=== PATIENT | female | born 1960 | race Caucasian/White ===

== ENCOUNTER 2022-07-15 03:04 | Outpatient (CLI) | payer OTHER, SELFPAY ==
--- NOTE | 2022-07-16 13:24 | W.PFT ---
Date of service: 07/15/22 Time of Service: 14:59 Pulmonary Function Test Result Requesting Provider Anette Gonzales Indications: Chronic cough Interpretation Spirometry: No airflow limitation. Methacholine challenge not performed as patient took Trelegy prior to testing. This has been rescheduled. Lung Volumes: Normal lung volumes Diffusion Capacity: Normal diffusion Airway Pressure: Normal airways pressure Impression Normal pulmonary function testing. Clinical Correlation therefore is recommended.
== END 2022-07-15 03:05 | disposition home or self-care (01) ==
LOC: RT 03:04
PROVIDERS: PCP Family Medicine; Visit Provider Physician Assistant Surgical
DX: R05.3 Chronic cough (principal)
CPT/HCPCS: 94726; 94729; 94010

== ENCOUNTER 2022-07-22 03:03 | Outpatient (CLI) | payer OTHER, SELFPAY ==
[2022-07-22] MEDS: Albuterol HFA 18 GM 200 PUFF INH IH (14:16)
[2022-07-22] MEDS: Methacholine 100 MG VIAL IH (14:16)
[2022-07-22] MEDS: Inhaler, Assist Device 1 EACH MC (14:16)
--- NOTE | 2022-07-25 13:40 | PFT_ITS ---
Date of service: 07/22/22 Time of Service: 13:00 Pulmonary Function Test Result Indications: Chronic cough Interpretation Spirometry: No airflow limitation at baseline. There was a 27% decrease in FEV1% with admin istration of 1.0mg/mL methacholine. Impression Strongly positive methacholine challenge. Clinical Correlation therefore is recommended.
== END 2022-07-22 03:04 | disposition home or self-care (01) ==
LOC: RT 03:03
PROVIDERS: PCP Family Medicine; Visit Provider Physician Assistant Surgical
DX: R05.3 Chronic cough (principal)
CPT/HCPCS: 94060; 94070; J7674

== ENCOUNTER 2024-10-17 14:44 | Outpatient (CLI) | payer OTHER, SELFPAY ==
--- NOTE | 2024-10-17 13:30 | DI.RAD_ITS ---
Exam(s) XR HIP RT COMPLETE AP PELVIS EXAM: XR HIP RT COMPLETE AP PELVIS CLINICAL HISTORY: eval R hip OA, preTHA planning. TECHNIQUE: 2D digital imaging was performed. Two views COMPARISON: No exams were available for comparison FINDINGS: BONES: No acute fracture is present. No bony destructive lesion is seen. The sacrum is partially obscured by overlying bowel gas. JOINTS: No dislocation present. There is severe narrowing of the right hip joint space, with a [id number] appearance. There is subchondral cysts on both sides of the joint as well as acetabular spurring. The left hip joint space is maintained. There is mild acetabular spurring. There are mild degenerative changes of the SI joints. SOFT TISSUE: Surgical clips in the bilateral lower pelvis. IMPRESSION: Severe degenerative changes of the right hip. DATA REPOSITORY: RADIATION DOSE DELIVERED:
== END 2024-10-17 14:45 | disposition home or self-care (01) ==
LOC: DIORS 14:44
PROVIDERS: PCP Family Medicine; Referring Provider Family Medicine; Visit Provider Student in an Organized Health Care Education/Training Program
DX: M16.11 Unilateral primary osteoarthritis, right hip (principal)
CPT/HCPCS: 73502

== ENCOUNTER 2024-12-29 18:29 | Outpatient (REF) | payer BC, SELFPAY ==
[2024-12-29 18:00] LABS: HCT 35.1 % (36.0-46.0); HGB 11.6 g/dL (11.2-15.7); MCH 31.5 pg (27.0-33.0); MCHC 33.0 % (32.0-36.0); MCV 95 fL (80-95); MPV 9.7 fL (8.0-11.0); Platelet Count 339 10^3/uL (130-400); RBC 3.68 10^6/uL (3.93-5.22); RDW 14.0 % (11.7-14.6); RDW-SD 48.8 fL; WBC 5.61 10^3/uL (4.4-10.8)
[2024-12-29 18:05] LABS: Anion Gap 10.2 mmol/L (3-11); BUN 14 mg/dL (7-18); CO2 22.8 mmol/L (21.0-32.0); Calcium 9.1 mg/dL (8.5-10.1); Chloride 95 mmol/L (98-107); Estimated GFR 105.32 (mL/min/1.73m2); Glucose 91 mg/dL (74-106); Potassium 4.5 mmol/L (3.5-5.1); Sodium 128 mmol/L (136-145)
== END 2024-12-29 18:30 | disposition home or self-care (01) ==
LOC: LBN 18:29
PROVIDERS: PCP Family Medicine; Visit Provider Student in an Organized Health Care Education/Training Program
DX: M16.11 Unilateral primary osteoarthritis, right hip (principal); Z01.818 Encounter for other preprocedural examination
CPT/HCPCS: 80048; 85027

== ENCOUNTER 2025-01-04 08:16 | Day surgery (SDC) | payer BC, SELFPAY ==
[2025-01-04] VITALS (24 sets, daily range): BP systolic 89–123; BP diastolic 46–77; PULSE 63–70; RESP 14–22; TEMP 36.1–36.6; O2SAT 94–100; BMI 32.7
--- NOTE | 2025-01-04 07:23 | PDOC.DSDIS_ITS ---
Date of service: 01/04/25 Discharge Plan Disposition Patient Disposition: Home Condition: Good Discharge Details Reason For Visit: R THR Attending Provider: Lj Tapia Primary Care Provider: Jj Sifuentes Home Meds and New Rx's Prescriptions: New celecoxib 200 mg capsule 200 mg PO BID Qty: 60 0RF aspirin 81 mg tablet,delayed release (DR/EC) 81 mg PO BID Qty: 60 0RF acetaminophen 500 mg tablet 1,000 mg PO TID Qty: 90 3RF pantoprazole 40 mg tablet,delayed release (DR/EC) 40 mg PO DAILY Qty: 14 0RF dexamethasone 4 mg tablet 4 mg PO DAILY Qty: 2 0RF docusate sodium 100 mg capsule 100 mg PO BID PRNQty: 28 0RF oxycodone 5 mg tablet 5 mg PO Q4H MDD 6 tabs PRN (Reason: pain) Qty: 12 0RF Continued fluoxetine 40 mg capsule 40 mg PO QPM fluticasone propionate 50 mcg/actuation spray,suspension 2 spray intranasal DAILY Rx Instructions: administer into each nostril hydroxychloroquine 200 mg tablet 200 mg PO BID multivitamin Tablet 1 tab PO DAILY naloxone [Narcan] 4 mg/actuation spray,non-aerosol 1 spray intranasal DIRECTED PRN Rx Instructions: spray 1 dose into ONE nostril; alternate nostrils w each dose until help arrives acetaminophen [Tylenol Extra Strength] 500 mg tablet 1,000 mg PO Q3H PRN vitamin T03-ibtfw acid 500-400 mcg tablet 1 tab PO DAILY Rx Instructions: administer with a meal zolpidem 5 mg tablet 5 mg PO QHS PRN Breztri Aerosphere 160-9-4.8 mcg/actuation HFA aerosol inhaler 2 inh inhalation BID Qty: 10.7 12RF Airsupra 90-80 mcg/actuation HFA aerosol inhaler 2 inh inhalation ONCE Qty: 10.7 12RF Rx Instructions: as a single dose; may repeat up to 6 doses per day (12 inhalations) albuterol sulfate 2.5 mg /3 mL (0.083 %) solution for nebulization 2.5 mg inhalation QID PRN (Reason: shortness of breath or wheezing) Qty: 180 6RF Calcium 600 with Vitamin D3 600 mg-10 mcg (400 unit) tablet,chewable 1 tab PO DAILY cyclobenzaprine 10 mg tablet 10 mg PO HS PRN Discontinued tramadol 50 mg tablet 50 mg PO BID PRN Discharge Instructions Additional Instructions: Total Hip Discharge Instructions Activity: The most important activity is to walk. You should try to take short walks a few times a day. You have no restrictions on movement or positioning, but do not try to force what you do. You will find some stiffness and weakness with hip flexion (lifting your knee). Do not try to strengthen this too early, continue to practice walking and stairs and this will come. - Outpatient physical therapy can be helpful to help return you to a normal gait and improve your flexibility and strength. This can start around 2 weeks. For some patients, it?s not necessary. Usually this is determined at the time of discharge or at the first post-operative visit. - You should wear the AIDEN hose on both legs for 2 weeks. Dressing: Keep the surgical dressing in place for at least one week. After the first week it may be removed and replace with light gauze and tape or nothing. It may get wet after 3 days but avoid soaking the dressing. If it gets wet, just lightly pat dry. It is important to always keep some gauze between skin folds, especially when you are sitting. Spend some time with the wound exposed when you are lying flat as the incision does wrinkle onto itself. Medications: - You should take Tylenol and an anti-inflammatory Celebrex as your primary pain control medications. If the Celebrex is too expensive or not covered, please call the office for another alternative (Advil/Ibuprofen or Naproxen/Aleve). - You have been prescribed a stronger pain medication Oxycodone for breakthrough pain to take instead of your usual tramadol. Take as needed as prescribed. - You have also been prescribed a stomach acid reduction agent Pantoprozole to help reduce stomach acid and reflux. - You have also been prescribed Decadron to help with post-operative nausea and pain. You will take this for two days starting tomorrow. - You will be taking Aspirin 81mg twice a day for DVT prevention unless instructed otherwise. - If you have constipation you should take Colace or Miralax (both xfpr-bwe-naigomo). It takes most people 3-4 days to have a bowel movement. Follow-up: 2 weeks If you have any acute concerns or questions, please do not hesitate to contact the office at [phone]. You may contact Dr. Tapia with any questions after hours through the hospital at [phone] or on his cell phone at [phone]. Referrals: Lj Tapia MD [ [facility] STAFF PHYSICIAN, Orthopaedic Surgical] Equipment/Supplies: Walker Activity:: Activity as Tolerated Shower/Bathe:: 72 hours Diet:: As Tolerated Discharge Orders Discharge Orders: Discharge Order (Routine); Ordered 01/04/25 Ordered By: Miguel Gaston DS: Diagnosis Discharge Diagnosis (1) Arthritis of right hip: Status: Acute
--- NOTE | 2025-01-04 08:15 | DI.RAD_ITS ---
Exam(s) XR HIP RT IN OR EXAM: XR HIP RT IN OR CLINICAL HISTORY: RIGHT HIP OA. TECHNIQUE: 2D and realtime digital imaging was performed. COMPARISON: CR XR HIP RT COMPLETE AP PELVIS from 10/17/2024 FINDINGS: Hard copy images show placement of a right hip prosthesis. The alignment appears satisfactory. Please see procedure note for details. Fluoro time: 35.1 seconds RADIATION DOSE DELIVERED: Ka,r=3.95 mGy
[2025-01-04] MEDS: Acetaminophen 500 MG TAB 1000 MG PO (08:56)
[2025-01-04] MEDS: Celecoxib 200 MG CAP 400 MG PO (08:56)
--- NOTE | 2025-01-04 08:58 | W.ANESPRE ---
General Info Date of Service Date Performed: 01/04/25 Height: 5 ft 1.5 in Weight: 79.8 kg Body Mass Index (BMI): 32.7 Surgical Procedure: Operation Date: 01/04/25 11:35 Proposed Procedure Side Surgeon p Hip Total Hip Anterior Right Lj Tapia MD Meds Allergies and Home Medications Allergies Allergy/AdvReac Type Severity Reaction Status Date / Time codeine AdvReac Intermediate Other (See Verified 01/04/25 08:47 Comment) Home Medication ?Medication ?Instructions ?Recorded acetaminophen 500 mg tablet 1,000 mg PO Q3H PRN 06/26/22 (Tylenol Extra Strength) fluoxetine 40 mg capsule 40 mg PO QPM 06/26/22 fluticasone propionate 50 2 spray intranasal DAILY 06/26/22 mcg/actuation nasal spray,suspension hydroxychloroquine 200 mg tablet 200 mg PO BID 06/26/22 multivitamin 1 tab PO DAILY 06/26/22 naloxone 4 mg/actuation nasal 1 spray intranasal DIRECTED PRN 06/26/22 spray (Narcan) vitamin B12 500 mcg-folic acid 400 1 tab PO DAILY 06/26/22 mcg tablet zolpidem 5 mg tablet 5 mg PO QHS PRN 06/26/22 calcium 600 mg (as carbonate)-vit 1 tab PO DAILY 07/28/24 D3 10 mcg (400 unit) chewable tablet (Calcium 600 with Vitamin D3) cyclobenzaprine 10 mg tablet 10 mg PO HS PRN 07/28/24 albuterol 90 mcg-budesonide 80 2 inh inhalation ONCE #10.7 grams 09/14/24 mcg/actuation HFA aerosol inhaler (Airsupra) albuterol sulfate 2.5 mg/3 mL 2.5 mg (3 mL) inhalation QID PRN 09/14/24 (0.083 %) solution for nebulization shortness of breath or wheezing #180 mL budesonide 160 mcg-glycopyr 9 2 inh inhalation BID #10.7 grams 09/14/24 mcg-formot 4.8 mcg/actuation HFA inhaler (Breztri Aerosphere) acetaminophen 500 mg tablet 1,000 mg (2 x 500 mg) PO TID #90 01/04/25 tabs aspirin 81 mg tablet,delayed 81 mg PO BID #60 tabs 01/04/25 release celecoxib 200 mg capsule 200 mg PO BID #60 caps 01/04/25 dexamethasone 4 mg tablet 4 mg PO DAILY #2 tabs 01/04/25 docusate sodium 100 mg capsule 100 mg PO BID PRN #28 caps 01/04/25 oxycodone 5 mg tablet 5 mg PO Q4H PRN pain #12 tabs 01/04/25 pantoprazole 40 mg tablet,delayed 40 mg PO DAILY #14 tabs 01/04/25 release Current Visit Medications: Current Medications Generic Name Dose Route Start Last Admin Trade Name Marleen PRN Reason Stop Dose Admin Acetaminophen 1,000 mg 01/04/25 06:00 01/04/25 08:56 Acetaminophen 500 Mg Tab PO 01/04/25 23:59 1,000 mg PREOP AMIE Administration Acetaminophen 1,000 mg 01/04/25 07:21 Acetaminophen 500 Mg Tab PO 02/03/25 08:29 TID PRN Analgesia Celecoxib 400 mg 01/04/25 06:00 01/04/25 08:56 Celecoxib 200 Mg Cap PO 01/04/25 23:59 400 mg PREOP AMIE Administration Docusate Sodium 100 mg 01/04/25 07:21 Docusate Sodium 100 Mg Cap PO 02/03/25 07:20 BID PRN PRN Constipation Ringer's Solution 1,000 mls @ 80 mls/hr 01/04/25 06:00 IV 01/04/25 23:59 INFUSION AMIE Cefazolin Sodium/Dextrose 2 gm in 50 mls @ 100 mls/hr 01/04/25 06:00 Ancef Duplex IVPB 01/04/25 23:59 PREOP AMIE Tranexamic Acid/Sodium Chloride 1,000 mg in 100 mls @ 600 mls/hr 01/04/25 06:00 IVPB 01/04/25 23:59 PREOP AMIE IV Miscellaneous Supplies 1 each 01/04/25 06:00 Iv Access IV 01/04/25 23:59 DIRECTED AMIE Ondansetron HCl 4 mg 01/04/25 07:21 Ondansetron 4 Mg/2 Ml Vial IVP 02/03/25 07:20 Q6H PRN PRN Nausea Oxycodone HCl 0 mg 01/04/25 07:21 Oxycodone 5 Mg Tab PO 02/03/25 07:20 Q3H PRN PRN Pain Polyethylene Glycol 17 gm 01/04/25 07:21 Polyethylene Glycol 3350 17 Gm Packet PO 02/03/25 07:20 BID PRN PRN Constipation Sodium Chloride 0 ml 01/04/25 06:00 Normal Saline Flush 10 Ml Syr IV 01/04/25 23:59 PRN PRN Sodium Chloride 0 ml 01/04/25 06:00 Normal Saline 10 Ml Vial IJ 01/04/25 23:59 DIRECTED PRN Sterile Water 0 ml 01/04/25 06:00 Water,Injection,Sterile 10 Ml Vial IJ 01/04/25 23:59 DIRECTED PRN PFSH Active Problems Active Problems: Problem Status Onset Code History of total right hip replacement Acute 01/04/25 Z96.641 Personal history of nicotine dependence Acute Z87.891 Asthma Chronic J45.909 Chronic cough Acute R05.3 Vitamin deficiency Acute E56.9 Vitamin D deficiency Acute E55.9 Varicose veins of both lower extremities Acute I83.93 Sleep disorder Acute G47.9 Polycystic disease, ovaries Acute E28.2 Sleep apnea, obstructive Chronic G47.33 Lower back pain Acute M54.50 Knee pain Acute M25.569 Presence of total knee joint prosthesis Acute Z96.659 Iron deficiency Acute E61.1 Intestinal malabsorption Acute K90.9 Insomnia Acute G47.00 Idiopathic osteoarthritis Acute M19.90 GERD (gastroesophageal reflux disease) Chronic K21.9 Episodic tension type headache Acute G44.219 Duodenitis Acute K29.80 Disorder of iron metabolism Acute E83.10 Depressive disorder Chronic F32.A Degeneration of lumbar intervertebral disc Acute M51.36 Cough Acute R05.9 Constipation Acute K59.00 Chronic rhinitis Acute J31.0 Chronic back pain Acute M54.9, G89.29 Cellulitis Acute L03.90 Abnormal blood chemistry Acute R79.9 Backache Acute M54.9 Arthropathy Acute M12.9 Adjustment disorder with depressed mood Acute F43.21 Adjustment disorder with anxious mood Acute F43.22 Acute sinusitis Acute J01.90 Acute bronchitis Acute J20.9 Medical History Medical History Hyperlipidemia History of psychiatric disorder depression and anxiety History of elective section Surgical History Surgical History History of bilateral knee replacement Hx of tubal ligation 04/27/88 History of colonoscopy 12/30/12 Hx of bariatric surgery 11/30/14 Tobacco Smoking/Tobacco Use Status: Former Tobacco Use Passive smoking exposure: No Alcohol Alcohol Intake: current Alcohol intake frequency: holidays/special occasions only Substance Use Substance use: Never Substance use type: does not use Vital Signs and Lab Results Vital Signs Most Recent Vital Signs in EMR: Most Recent Vital Signs Temp Pulse Resp BP Pulse Ox 36.4 C L 70 16 118/74 100 01/04/25 08:36 01/04/25 08:36 01/04/25 08:36 01/04/25 08:36 01/04/25 08:36 Lab Results Complete Blood Count: WBC, (4.4-10.8) 5.61 10^3/uL 12/29/24, 14:15 RBC, (3.93-5.22) 3.68 10^6/uL L 12/29/24, 14:15 Hgb, (11.2-15.7) 11.6 g/dL 12/29/24, 14:15 Hct, (36.0-46.0) 35.1 % L 12/29/24, 14:15 Plt Count, (130-400) 339 10^3/uL 12/29/24, 14:15 Complete Metabolic Panel: Sodium, (136-145) 134 mmol/L L Today, 09:40 Potassium, (3.5-5.1) 4.3 mmol/L Today, 09:40 Chloride, (98-107) 101 mmol/L Today, 09:40 Carbon Dioxide, (21.0-32.0) 25.9 mmol/L Today, 09:40 BUN, (7-18) 11 mg/dL Today, 09:40 Creatinine, (0.55-1.02) 0.5 mg/dL L Today, 09:40 Est GFR (CKD-EPI 2020), (mL/min/1.73m2) 105.32 Today, 09:40 Calcium, (8.5-10.1) 8.8 mg/dL Today, 09:40 Albumin, (3.4-5.0) 3.4 g/dL Today, 09:40 Glucose, (74-106) 85 mg/dL Today, 09:40 Liver Function Panel: ALT, (14-59) 22 U/L Today, 09:40 AST, (15-37) 23 U/L Today, 09:40 Imaging and Studies Imaging and Studies Study information below may be from another EMR and interpreted by another provider. Please see original notes in EMR for more complete details. Pulmonary Function Summary: Pulmonary Function Test PATIENT NAME: Bessie Dent UNIT #: [id number] ADMITTING PROVIDER: Natalia Sam M.D. PRIMARY CARE PROVIDER: SANDI RUTLEDGE DATE OF ADMIT: 07/22/22 : 1960 Date of service: 07/22/22 Time of Service: 13:00 Pulmonary Function Test Result Indications: Chronic cough Interpretation Spirometry: No airflow limitation at baseline. There was a 27% decrease in FEV1% with administration of 1.0mg/mL methacholine. Impression Strongly positive methacholine challenge. Clinical Correlation therefore is recommended. cc: Dictated by: NATALIA SAM MD Dictated: 07/25/22 Time: 1340 <Electronically signed by Natalia Sam M.D.> Date: 07/25/221341 Date: Date: Transcribed Date: 07/25/22 Transcribed Time: 1340 By: NAILA This is privileged, confidential information, intended only for the provider named. Any use or distribution by any person other than this provider is strictly prohibited. If you receive this report in error, please notify us immediately at [phone] and return the original report to us at the address above. Thank you. Anesthesia Assessment and Plan Anesthesia History Personal History: No History of Anesthesia Complications Family History: No Family History of Anesthesia Complications Exercise Tolerance Exercise Tolerance: Metabolic Equivalents>4 Pertinent Negatives Pertinent Negatives: No Major Cardiovascular Symptoms or Complaints and No History of CVA/TIA Cardiac & Pulmonary Exam Cardiac Exam: Normal S1/S2 Heart Sounds Pulmonary Exam: Clear Bilateral Breath Sounds Implantable Cardiac Device Does patient have a Pacemaker or an ICD?: No Airway Exam Known Difficult Airway: No Mallampati Class: 3 Mouth Opening: Normal (> 3cm) Thyromental Distance: Greater than 3 cm Neck Range of Motion: Full ROM Neck Circumference: Normal Teeth Condition: Removable Dentures/Plates Upper and Edentulous ASA Classification ASA Score: ASA 3 Emergency Case?: No NPO Status NPO Status: NPO Clears >2 hours, Solids >8 hours Anesthesia Plan Resuscitation Status: Full Code Anesthesia Technique: General Anesthesia Airway Planned: Endotracheal Tube Monitors Used: Standard Monitors
[2025-01-04] MEDS: Lactated Ringers 1,000 ML 80 ML IV (09:09)
[2025-01-04 10:05] LABS: ALT 22 U/L (14-59); AST 23 U/L (15-37); Albumin 3.4 g/dL (3.4-5.0); Alkaline Phosphatase 80 U/L (46-116); Anion Gap 7.1 mmol/L (3-11); BUN 11 mg/dL (7-18); Bilirubin, Total 0.2 mg/dL (0.2-1.0); CO2 25.9 mmol/L (21.0-32.0); Calcium 8.8 mg/dL (8.5-10.1); Chloride 101 mmol/L (98-107); Estimated GFR 105.32 (mL/min/1.73m2); Glucose 85 mg/dL (74-106); Potassium 4.3 mmol/L (3.5-5.1); Sodium 134 mmol/L (136-145); Total Protein 7.1 g/dL (6.4-8.2)
--- NOTE | 2025-01-04 11:04 | W.PM.OP ---
Operative Note Operative Note PRE-OP DIAGNOSIS: Right Hip Osteoarthritis POST-OP DIAGNOSIS: same PROCEDURE: Right Anterior Total Hip Arthroplasty with Intraoperative Navigation SURGEON: Lj Tapia SHOWROOM EXECUTIVE DIRECTOR: Miguel Gaston ANESTHESIA TYPE: General LMA/ETT Refer to Anesthesia Record ESTIMATED BLOOD LOSS: 200 PATHOLOGY: none sent TOURNIQUET TIME: 0 COMPLICATIONS: None Patient was transported to: PACU Patient's condition: stable Implants: 1. Depuy Mason Acetabular Component, 52mm 2. Depuy Acetabular Liner, [id number] 3. Depuy Corail Short Neck 135 Degree Collared Femoral Stem, Size 13 4. Depuy Altrx Ceramic Femoral Head, Size 36+1.5mm Indications: I have seen Bessie in clinic for symptoms of hip arthritis, confirmed with radiographic findings. She has exhausted nonoperative methods and was having significant limitations in daily function and desired better function and less pain. I discussed the technical details of a hip replacement. I explained the risks of the procedure to include, but not limited to, bleeding, infection, pain, stiffness, fracture, damage to nerves and vessels, damage to muscles and tendons, loosening, instability, leg length inequality, need for repeat procedure, blood clot and cardiopulmonary demise. Despite these risks, Bessie elected to proceed. Findings: There was significant signs of arthritis throughout the hip with a large effusion and abundant synovitis. Procedure Description: Bessie was greeted in the preoperative holding area where the correct side was identified and marked. The consent was reviewed with the patient and signed. The history and physical was updated. All questions were answered. She was taken back to the operating room. A general anesthestic was then administered. The feet were wrapped with cast padding and Coban and then placed into the boot liners and then into the boots. Care was taken to protect the skin and make sure the heels were fully down and the boots were stable. The patient was then positioned onto the HANA table. Both legs were held in a neutral position. SCDs were applied. The patient was then slid down onto a peroneal post. Prophylactic antibiotics in the form of Cefazolin were administered. 1g of Tranxemic Acid was given intravenously within 30 minutes of incision. The right leg was then prepped with Chloraprep and draped in a standard fashion. A second prep with Chloraprep was performed prior to placement of a shower-curtain type drape with Iodine impregnated skin protection. A timeout to confirm correct identity, side and site, procedure, allergies, anesthesia, and medical concerns was performed. An obliquely oriented incision was made starting lateral to the ASIS and running distal over the Tensor Fascia Zora (TFL) muscle belly toward the fibular head, approximately 10cm. The skin and soft tissue was dissected sharply, through Nargis?s fascia, and to the fascia of the TFL. With the fascia and superior border of the IT band identified, the fascia was incised with a new knife just above any perforators from the IT band. The TFL muscle belly was bluntly dissected away from the fascia and moved laterally. The fat between TFL and rectus was identified to ensure the dissection was not within the TFL. Blunt dissection created space between abductors and the capsule and retractor was placed over the lateral femoral neck. The fibers of the rectus femoris tendon were identified and these were freed from the anterior capsule. A second cobra retractor was placed around the medial femoral neck. The TFL was further retracted laterally to show the deep fascia. Careful dissection through this layer identified three main crossing vessels of the lateral femoral circumflex. These were cauterized in multiple locations and then cut without any noticeable bleeding. The TFL was further released bluntly from the deep fascia to expose anterior hip capsule and fat The soft tissue orthopaedic retractor was then placed beneath the TFL and against sartorius and medial soft tissues to protect and retract the soft tissues. A T-capsulotomy was then performed starting at the superior lateral acetabulum and moving distally to the intertrochanteric ridge. These capsular flaps were tagged with a No. 1 Vicryl and elevated from within. The capsular flaps were released to the shoulder of the lateral neck and to the lesser trochanter to give excellent visualization of the proximal femur. A neck osteotomy was performed using an oscillating saw based on preoperative templates. This cut started in the shoulder and of the lateral neck and exited medially. The saw was at all times directed medially to avoid injury to the greater trochanter. Gross traction was applied to the leg and the osteotomy opened. The femoral head was removed with a corkscrew, making sure to protect the TFL on its exit. Traction was released after head removal. This was measured on the back table to determine the starting reamer size. Portions of the rectus obscuring visualization were minimally elevated off the superior acetabulum. An anterior retractor was placed over the anterior wall between capsule and labrum and attached to the Gripper retraction system. The femur was rotated to 90 degrees and medial capsule was fully released until the lesser trochanter was palpable and visible; the femur was returned to 30 degrees. A posterior retractor was placed similarly between capsule and labrum. This provided excellent visualization. The contents of the cotyloid fossa were removed with electrocautery and the labrum was removed with a knife. There was a notable floor osteophyte. There was significant chondromalacia of the superior acetabulum. Acetabular reaming began with a 46mm reamer. This first reaming was directed anterior to posterior and medial to get down to the true floor. This was inspected and reamed until the true floor was reached. The anterior retractor was then released and entry and exit was provided by traction on the capsular flaps. I then reamed sequentially up to a 52mm reamer where good fit was obtained. The larger reamers were oriented based on anatomical reference of the anterior and lateral gutierrez to ensure proper abduction and anteversion. Positioning and size was confirmed with the fluoroscopy. A 52mm Depuy Mason acetabular component was selected. The acetabulum was reamed around the periphery with the selected acetabular size to prevent a rim fit. The deep tissues were irrigated. The acetabular component was then impacted in a position of about 40-45 degrees of abduction and 15-20 degrees of anteversion, using the patient?s anatomy as the ultimate landmark. Fluoroscopy was used to confirm this. There was excellent auto inspector of the acetabular component and the inserting handle was removed. The acetabular liner, Depuy [id number] polyethylene liner, was inserted and lined up with the tines of the acetabular component. There was no soft tissue interposition. The liner was then impacted into position and confirmed to be well-seated. A portion of the romario-articular cocktail was then injected around the acetabulum into the capsule and periosteum. This cocktail consisted of 123mg of Ropivacaine, 0.25mg of Epinephrine, 0.04mg of Clonidine, and 15mg of Ketorolac, diluted to 50cc. The leg was rotated to 120 degrees. Any remaining medial capsule was released until the lesser trochanter was easily palpable. A retractor was placed medially. The lateral capsule was further released into the shoulder to allow access to the greater trochanter. A Winter retractor was placed over the greater trochanter which allowed the trochanter to flip in front of the capsule for excellent exposure. The leg was brought down into maximal extension and 20 degrees of adduction while ensuring there was no impingement on the acetabulum. Any remnant capsule within the trochanter was released. Piriformis and obturator externis were identified and protected. There was excellent access to the proximal femur. The lateral neck remnant was removed with a rongeur. A blunt canal probe was used to identify the canal and trajectory for later broaching. A box osteotome initiated the broach course. A small curved rasp and a curved curette were used to work laterally. Broaching then began with a size 8 Corail broach. This was inserted manually around the trochanter and into the canal before mallet blows. The broach was seated to the neck cut level based on the neck cut and the preoperative template. Sequential broaching was continued with the [employer] pneumatic broaching device until a tight fit was obtained with good rotational control of the femur. A trial short neck was inserted along with a +1.5 trial head. The leg was brought out of extension and adduction and then reduced with traction and internal rotation. The leg was stable anteriorly in a position of 30 degrees of extension and 90 degrees of external rotation. Fluoroscopy was used to ensure there was no fracture and the stem was seated well. Leg lengths were checked with an AP pelvis and pelvic reference points. [employer] navigation system was used to confirm appropriate positioning and leg length and offset. Once content with the desired offset and leg lengths, the leg was brought back into extension, external rotation and adduction. The periosteum and surrounding tissue was injected with remaining portion of the romario-articular cocktail. The proximal femur was irrigated as well as the deep tissues. The Depuy Corail short neck 135 degree collared stem, size 13, was then manually inserted into the proximal femur making sure to control rotation. It was then malleted into position with light blows, giving breaks to allow bone expansion and decrease risk of fracture. The selected Depuy Altrx Ceramic Head, size 36+1.5mm, was then placed onto the clean and dry trunnion and secured with impaction onto the tapered fit. The leg was brought back out of extension and adduction and reduced with traction and internal rotation. Stability was confirmed with no shuck at 90 degrees of external rotation and 30 degrees of extension. No impingement through range of motion arc. Final x-ray images were obtained with fluoroscopy to confirm adequate positioning and no intraoperative fracture. The deep tissues were thoroughly irrigated with Surgiphor, betadine solution. This was allowed to sit in the wound for 3 minutes before being thoroughly irrigated out with normal saline. The capsule was then reapproximated with the previously placed sutures and the indirect head of the rectus was inspected and reapproximated with a #1 Vicryl. The TFL fascia was finally closed with a No. 2 Stratafix, barbed suture. Deep tissues were then reapproximated with 0 Vicryl and a running 2-0 Vicryl. The skin was closed with a running 4-0 Monocryl in a subcuticular fashion. This was reinforced with skin glue. A Mepilex silver dressing was applied. At the end of the case, all counts were correct. Bessie was transferred to the hospital bed without difficulty and suffering no apparent complication. She has a good prognosis. Physical therapy will start today and without restrictions, weight-bearing as tolerated. Aspirin 81mg BID will be used for DVT prophylaxis. Date of Procedure: 01/04/25
[2025-01-04] MEDS: ceFAZolin 2 GM/50 ML BAG IVPB (11:06)
[2025-01-04] MEDS: TRANEXAMIC ACID/SOD. CHL. 1,000 MG/100 ML BAG 600 MG IVPB (11:15)
[2025-01-04] MEDS: ePHEDrine 25 MG/5 ML Syringe IVP (12:42)
[2025-01-04] MEDS: fentaNYL 100 MCG/2 ML VIAL IVP ×3 (12:53→13:05)
--- NOTE | 2025-01-04 13:29 | W.ANESPOSTOP ---
Postoperative Evaluation Date, Time and Location Date Performed: 01/04/25 Time Performed: 13:29 Patient Location: Day Surgery Unit Vital Signs Most Recent Imported Vital Signs: Most Recent Vital Signs Temp Pulse Resp BP Pulse Ox 36.3 C L 68 14 103/71 97 01/04/25 13:18 01/04/25 13:18 01/04/25 13:18 01/04/25 13:18 01/04/25 13:18 Pain Score Most Recent Pain Score: Most Recent Pain Score Pain Level 6 01/04/25 13:03 07/04 Assessment Mental Status: Awake (Alert & Oriented to Patient Baseline) Airway and Respiratory Function: Patent airway with normal (patient baseline) respiratory exam Cardiovascular Function: Hemodynamically Stable Hydration Status: Adequately Hydrated Nausea & Vomiting: No Nausea or Vomiting Pain: Pain is tolerable per patient (3/10 per patient at this time. ) Peripheral Nerve Block: Patient did not receive a nerve block
[2025-01-04] MEDS: Tranexamic Acid 650 MG TAB 1300 MG PO (13:50)
--- NOTE | 2025-01-04 15:00 | IN_ITS ---
PT Notes Visit Reasons: R THR Physical Therapy Day Surgery Initial Evaluation Date: 01/04/2025 Referring Doctor: MEKHI Almaraz; Dr Tapia PT Orders: PT CONSULT: s/p Ortho Surgery Precautions: WBAT RLE , TEDs x 2 weeks Patient Profile/Admitting Diagnosis: Pt is a 64 yo female presting s/p elective R SNEHA by Dr Tapia on 01/04/2025. Post op uncomplicated. PMHX: Arthritis of right hip (Acute) Personal history of nicotine dependence (Acute) Asthma (Chronic) Chronic cough (Acute) Vitamin deficiency (Acute) Vitamin D deficiency (Acute) Varicose veins of both lower extremities (Acute) Sleep disorder (Acute) Polycystic disease, ovaries (Acute) Sleep apnea, obstructive (Chronic) Lower back pain (Acute) Knee pain (Acute) Presence of total knee joint prosthesis (Acute) Iron deficiency (Acute) Intestinal malabsorption (Acute) Insomnia (Acute) Idiopathic osteoarthritis (Acute) GERD (gastroesophageal reflux disease) (Chronic) Episodic tension type headache (Acute) Duodenitis (Acute) Disorder of iron metabolism (Acute) Depressive disorder (Chronic) Degeneration of lumbar intervertebral disc (Acute) Cough (Acute) Constipation (Acute) Chronic rhinitis (Acute) Chronic back pain (Acute) Cellulitis (Acute) Abnormal blood chemistry (Acute) Backache (Acute) Arthropathy (Acute) Adjustment disorder with depressed mood (Acute) Adjustment disorder with anxious mood (Acute) Acute sinusitis (Acute) Acute bronchitis (Acute) Medical History Hyperlipidemia History of psychiatric disorder History of elective section Surgical History Hx of tubal ligation 04/27/88History of colonoscopy 12/30/12Hx of bariatric surgery 11/30/14 Social History/Home Situation: Pt resides alone in an apt. with 1 step without rail into building then 2 steps with B rail to apt. 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 She drives. She is independent ADL ,shopping, homemaking, cooking. Equipment Owned/DME: FWW, grab bars near toilet and shower stall. elevated toilet height Subjective: Pt reports she is feeling better. She states she is ready to get moving. During ambulation she stated she is having less pain than when she came in. Objective: [] General Observation: semireclined on stretcher with ice to right hip, Pt's son present in room. Mental Status: A+OX4 , cooperative , able to follow all instructions. agreeable to participate in evaluation Pain: right hip 2-3/10 increase to 4/10 on stairs ROM: [] BUE WFL Right Lower Extremity: hip flexion: 92 degrees, abduction 12 degrees, IR to neutral, knee ankle WNL Left Lower Extremity: WNL Strength: [] BUE: 5/5 Right Lower Extremity: Hip flexion: 2+/5; hip abduction: 2- /5; hip extension: 2+/5; knee extension: 3 /5; knee flexion: 2+ /5 ankle DF: 3 /5 ; ankle PF: 3/5 Left Lower Extremity: 5/5 Sensation: intact Bed Mobility/Transfers: [] Supine to sit CGA for RLE Sit to stand SBA Stand to sit SBA Bed to chair SBA with FWW Gait: Ambulated with FWW standby assist 150 feet including turns on level surfaces patient able to progress to reciprocal pattern with reduced step length on right, decreased knee flexion right during swing phase slight circumduction on right during swing. Stairs: 3 4 steps? and 2 6 steps with rails SBA with continuous cues for sequencing step to pattern perform 1 step with FWW with CGA for FWW placement Balance: [] Static Sitting: Normal Dynamic Sitting: Good Static Standing: Good with upper extremity support Dynamic Standing: Fair plus with 1 upper extremity support Special Tests: [] Mobility Limitations Standardized Measure [] [facility] AM-PAC 6 clicks Basic Mobility Inpatient Short Form: [] Raw Score: 21 CMS Score: 28.97% Informed Consent/Education: Patient instructed in purpose of PT consult. Son able to provide assistance for FWW mgmt on one step without rail Treatment: 46123 packet containing SNEHA exercise protocol has been given to patient. Education and training on initial set of 5 reps of exercises that can be done at home have been completed with patient. Assessment: Patient is a 64-year-old female who presents with clinical signs and symptoms consistent with current/admitting diagnoses that have resulted to mobility limitations, gait instability, generalized weakness, and impairment of motor control as demonstrated by the following impairment level findings: 1. Decreased strength to right hip major muscle groups 2. Impaired standing balance 3. Limitation of joint range of motion in right hip 4. Pain right hip 5. Impaired functional activity tolerance Impairments are contributing to the following functional limitations: 1. Inability to safely ambulate without assistive device 2. Increase completion time for mobility ADL performance 3. Increased fall risk 4. Difficulty performing stairs without assistance Patient is assessed as a moderate complexity based on the following: History: 64-year-old female with impairment level findings, functional limitations, and past medical history as indicated above Examination: Demonstrable impairment in strength, balance, and mobility level with underlying impairments and functional limitations as documented above Presentation: Stable/evolving Decision Making: Moderate Goals: N/A. PT evaluation and 1-2 treatment sessions only for functional mobility training using recommended AD and for HEP instruction. Plan of Care/Treatment Plan: N/A. PT evaluation and 1-2 treatment session only for functional mobility training using recommended AD and for HEP instruction. DISCHARGE RECOMMENDATIONS: Home with HEP and use of FWW TREATMENT CODE/TIME: 15326,[id number]/ [id number] Thank you for the opportunity to participate in the care of this patient. Palmira Burroughs PT [facility]
== END 2025-01-04 15:04 | disposition home or self-care (01) ==
LOC: SUR 08:17
PROVIDERS: Nurse Anesthetist, Certified Registered; PCP Family Medicine; Visit Provider Student in an Organized Health Care Education/Training Program
PROC: (CPT 27130; principal; 2025-01-04 11:15)
DX: M16.11 Unilateral primary osteoarthritis, right hip (principal)
CPT/HCPCS: 27130; 20985; 36415; 80053; 97110; 97162; 73501; C1776; J0690; J1100; J2250; J2405; J2704; J3010; J3475

== ENCOUNTER 2025-01-19 14:55 | Outpatient (CLI) | payer BC, SELFPAY ==
--- NOTE | 2025-01-19 12:45 | DI.RAD_ITS ---
Exam(s) XR HIP RT COMPLETE AP PELVIS EXAM: XR HIP RT COMPLETE AP PELVIS INDICATION: 1st post op S/P R SNEHA. COMPARISON: CR XR HIP RT COMPLETE AP PELVIS from 10/17/2024 XA XR HIP RT IN OR from 01/04/2025 TECHNIQUE: 2D digital imaging was performed. Two views. FINDINGS: There has been no change in the alignment of the right hip prosthesis. There are no abnormal surrounding bony lucencies. DATA REPOSITORY: RADIATION DOSE DELIVERED:
== END 2025-01-19 14:56 | disposition home or self-care (01) ==
LOC: DIORS 14:55
PROVIDERS: PCP Family Medicine; Visit Provider Student in an Organized Health Care Education/Training Program
DX: Z96.641 Presence of right artificial hip joint (principal)
CPT/HCPCS: 73502